=== PATIENT | female | born 1960 | race Caucasian/White ===

== ENCOUNTER 2023-06-14 08:39 | Outpatient (CLI) | payer BC ==
--- NOTE | 2023-06-24 15:58 | Mammography Report ---
BILATERAL DIGITAL SCREENING MAMMOGRAM 3D/2D WITH AUGMENTATION: 06/14/2023 CLINICAL: Routine screening. Family history of breast cancer. No prior exams were available for comparison. There are scattered areas of fibroglandular density in both breasts (category b / 25%-50% glandular t issue). There is an oval focal asymmetry in the right breast at 2 o'clock anterior depth. There is an asymmetry in the left breast posterior depth superior region seen on the mediolateral obl ique view only. No other significant masses or calcifications are seen in either breast. Multiple other small oval circumscribed bilateral masses are presumed to be benign. IMPRESSION: INCOMPLETE: NEEDS ADDITIONAL IMAGING EVALUATION The oval focal asymmetry in the right breast at 2 o'clock anterior depth is indeterminate. Additiona l views with possible ultrasound are recommended. The asymmetry in the left breast posterior depth superior region seen on the mediolateral oblique vie w only is indeterminate. Additional views with possible ultrasound are recommended. Based on the Tyrer Cuzick model (a risk assessment model) the patient's lifetime risk is 12.3% and he r 10 year risk is 5.2%. According to the ACR, ACS, and NCCN guidelines, an annual breast MRI exam jon ng with mammogram is recommended if the patients lifetime risk is 20% or greater. This exam was interpreted at Station ID: [id number]. NOTE: For mammograms, a report in lay terms will be sent to the patient. Approximately 15% of breast malignancies will not be visualized mammographically. In the management of a palpable breast mass, a negative mammogram must not discourage biopsy of a clinically suspicious lesion. Electronically Signed By: Jericho Campos M.D. lc/:06/24/2023 11:35:04 ACR BI-RADS Category 0: Incomplete 3340F PARENCHYMAL PATTERN: (A) - The breast(s) demonstrate(s) scattered fibroglandular densities. BI-RADS CATEGORY: (0) - 0 Mammo and [place] [id number] Immediate follow-up LATERALITY: (B)
== END 2023-06-14 08:40 | disposition home or self-care (01) ==
LOC: DI.S 08:39
PROVIDERS: ATTEND Registered Nurse
DX: Z12.31 Encounter for screening mammogram for malignant neoplasm of breast (principal); Z80.3 Family history of malignant neoplasm of breast; R92.323 Mammographic fibroglandular density, bilateral breasts; R92.8 Other abnormal and inconclusive findings on diagnostic imaging of breast

== ENCOUNTER 2023-07-09 07:49 | Outpatient (CLI) | payer BC ==
--- NOTE | 2023-07-12 10:32 | Ultrasound Report ---
LIMITED ULTRASOUND OF RIGHT BREAST: 07/09/2023 CLINICAL: Patient returns today to evaluate a focal asymmetry in the right breast. Comparison is made to exam dated: 06/14/2023 mammogram - [facility]. Color flow ultrasound of the right breast 3 o'clock region was performed. [place] scale images of the r eal-time examination were reviewed. There is a 0.5 cm x 0.5 cm x 0.4 cm cluster of oval complicated cysts with thin septated internal wal ls in the right breast at 3 o'clock middle depth 5 cm from the nipple. This cluster of oval complica william cysts is hypoechoic with internal echoes. This correlates with mammography findings. Color flow imaging demonstrates that there is no vascularity present. IMPRESSION: PROBABLY BENIGN The 0.5 cm x 0.5 cm x 0.4 cm cluster of oval complicated cysts in the right breast most likely is pro bably benign. A follow-up right mammogram and a right ultrasound in 6 months is recommended to demonstrate stabilit y. Findings and recommendations were conveyed to the patient during today's evaluation. This exam was interpreted at Station ID: [id number]. Electronically Signed By: Bernabe Martinez M.D. aty/:07/09/2023 09:49:58 Ultrasound BI-RADS: 3 Probably benign BI-RADS CATEGORY: (3) - 3 Mammo and [place] [id number] 6 month follow-up LATERALITY: (R)
--- NOTE | 2023-07-12 10:32 | Mammography Report ---
BILATERAL DIGITAL DIAGNOSTIC MAMMOGRAM 3D/2D WITH SPOT COMPRESSION WITH AUGMENTATION: 07/09/2023 CLINICAL: Patient returns today to evaluate asymmetries in bilateral breasts. Comparison is made to exam dated: 06/14/2023 mammogram - [facility]. There are scattered areas of fibroglandular density in both breasts (category b / 25%-50% glandular t issue). There is a 0.6 cm oval equal density focal asymmetry in the right breast at 2 o'clock anterior depth. This is seen in additional views. The previously described asymmetry in the left breast posterior depth superior region seen on the med iolateral oblique view only is no longer seen and resembles fibroglandular tissue. This disperses wi th additional views and is consistent with summation artifact. No other significant masses or calcifications are seen in either breast. IMPRESSION: INCOMPLETE: NEEDS ADDITIONAL IMAGING EVALUATION The 0.6 cm oval equal density focal asymmetry in the right breast at 2 o'clock anterior depth resembl es a cyst or a lymph node and is indeterminate. An ultrasound is recommended for further evaluation and is scheduled to immediately follow this examination. The previously described left breast asymmetry disperses with additional views and is consistent with summation artifact. Based on the Tyrer Cuzick model (a risk assessment model) the patient's lifetime risk is 12.3% and he r 10 year risk is 5.2%. According to the ACR, ACS, and NCCN guidelines, an annual breast MRI exam jon ng with mammogram is recommended if the patient's lifetime risk is 20% or greater. This exam was interpreted at Station ID: [id number]. NOTE: For mammograms, a report in lay terms will be sent to the patient. Approximately 15% of breast malignancies will not be visualized mammographically. In the management of a palpable breast mass, a negative mammogram must not discourage biopsy of a clinically suspicious lesion. Electronically Signed By: Bernabe Martinez M.D. aty/:07/09/2023 08:47:23 ACR BI-RADS Category 0: Incomplete 3340F PARENCHYMAL PATTERN: (A) - The breast(s) demonstrate(s) scattered fibroglandular densities. BI-RADS CATEGORY: (0) - 0 Ultrasound [id number] Immediate follow-up LATERALITY: (R)
== END 2023-07-09 07:50 | disposition home or self-care (01) ==
LOC: DI 07:49
PROVIDERS: ATTEND Registered Nurse
DX: N60.11 Diffuse cystic mastopathy of right breast (principal); R92.323 Mammographic fibroglandular density, bilateral breasts